=== PATIENT | female | born 1995 | race Caucasian/White ===

== ENCOUNTER 2018-11-22 18:52 | Emergency (ER) | payer MEDICAID ==
[2018-11-22 19:08] LABS: URINE APPEARANCE CLEAR; URINE BILIRUBIN SMALL (NEGATIVE); URINE BLOOD NEGATIVE (NEGATIVE); URINE COLOR YELLOW; URINE GLUCOSE (UA) NEGATIVE (NEGATIVE); URINE LEUKOCYTE ESTERASE TRACE (NEGATIVE); URINE NITRITE NEGATIVE (NEGATIVE)
[2018-11-22 19:10] LABS: URINE KETONE 80 mg/dL (NEGATIVE)
[2018-11-22 19:15] LABS: HCG,QUALITATIVE URINE NEGATIVE (NEGATIVE); URINE BACTERIA FEW; URINE EPITHELIAL CELLS TNTC (FEW); URINE RBC 0 - 2 (NONE SEEN); URINE WBC 0 - 2 (0-2/hpf)
[2018-11-22] MEDS ORDERED: KETOROLAC 30 MG/ML VIAL IVP ONE (19:35)
[2018-11-22] MEDS ORDERED: ONDANSETRON HCL IV 4 MG/2 ML VIAL IV ONE (19:35)
[2018-11-22] MEDS ORDERED: 0.9 % SODIUM CHLORIDE 1,000 ML BAG IV ONE (19:35)
[2018-11-22 19:59] LABS: ABSOLUTE NEUTROPHIL COUNT 8.89; BASO % 0.1 % (0-6); GRAN % 74.9 % (47-80); HEMATOCRIT 38.2 % (35.0-47.0); LYMPH % 14.6 % (16-45); MEAN CELL VOLUME 94.1 fl (81-97); MEAN PLATELET VOLUME 9.5 fl (7.4-10.4); MONO % 10.4 % (0-9); PLATELET COUNT 375 K/uL (130-400); RED BLOOD COUNT 4.06 M/uL (3.80-5.40); RED CELL DISTRIBUTION WIDTH 11.9 % (11.5-14.5); WHITE BLOOD COUNT W/O DIFF 11.9 K/uL (4.2-12.2)
--- NOTE | 2018-11-22 20:04 | Emergency Department Record ---
History of Present Illness - General Chief complaint: Flank Pain Stated complaint: LT FLANK PAIN Time Seen by Provider: 11/22/18 19:03 Source: Patient Mode of Arrival: Ambulatory Limitations: No limitations - History of Present Illness Initial comments: pt has been having vom, diarrhea, and ap since yesterday. she has vomited multiple times and had 3 bouts of diarrhea. she has llq pain and also has yellow vaginal discharge. she doesnt remember what she ate prior to getting sick MD Complaint: Vaginal discharge Onset/Timin -: Days(s) Radiation: LLQ Severity: Moderate Quality: Aching, Cramping Consistency: Constant, Intermittent LMP Date: 11/13/18 Gestational Age (wks) based on LMP: 1 Associated Symptoms: Abdominal pain, Nausea/vomiting - Related Data Previous Rx's Medication Instructions Recorded Metronidazole 500 mg PO BID #14 tablet 11/22/18 Allergies Allergy/AdvReac Type Severity Reaction Status Date / Time No Known Drug Allergies Allergy Verified 11/22/18 19:08 Travel Screening - Travel/Exposure Within Last 30 Days Have you traveled within the last 30 days?: No - Travel/Exposure Within Last Year Have you traveled outside the [place] in the last year?: No - Additonal Travel Details Have you been exposed to anyone with a communicable illness?: No - Travel Symptoms Symptom Screening: None Review of Systems Reviewed: No additional complaints except as noted below Constitutional: Reports: As per HPI. Denies: Chills, Fever, Malaise, Night sweats, Weakness, Weight change Eyes: Reports: As per HPI. Denies: Eye discharge, Eye pain, Photophobia, Vision change ENT: Reports: As per HPI. Denies: Congestion, Dental pain, Ear pain, Epistaxis, Hearing loss, Throat pain Respiratory: Reports: As per HPI. Denies: Cough, Dyspnea, Hemoptysis, Stridor, Wheezes Cardiovascular: Reports: As per HPI. Denies: Arrhythmia, Chest pain, Dyspnea on exertion, Edema, Murmurs, Orthopnea, Palpitations, Paroxysmal nocturnal dyspnea, Rheumatic Fever, Syncope Endocrine: Reports: As per HPI. Denies: Fatigue, Heat or cold intolerance, Jacob ydipsia, Polyuria Gastrointestinal: Reports: Abdominal pain, Diarrhea, Nausea, Vomiting. Denies: Constipation, Hematemesis, Hematochezia, Melena Genitourinary: Reports: As per HPI. Denies: Abnormal menses, Discharge, Dyspareunia, Dysuria, Frequency, Hematuria, Incontinence, Retention, Urgency Musculoskeletal: Reports: As per HPI. Denies: Arthralgia, Back pain, Gout, Joint swelling, Myalgia, Neck pain Skin: Reports: As per HPI. Denies: Bruising, Change in color, Change in hair/nails, Lesions, Pruritus, Rash Neurological: Reports: As per HPI. Denies: Abnormal gait, Confusion, Headache, Numbness, Paresthesias, Seizure, Tingling, Tremors, Vertigo, Weakness Psychiatric: Reports: As per HPI. Denies: Anxiety, Auditory hallucinations, Depression, Homicidal thoughts, Suicidal thoughts, Visual hallucinations Hematological/Lymphatic: Reports: As per HPI. Denies: Anemia, Blood Clots, Easy bleeding, Easy bruising, Swollen glands Past Medical History - SOCIAL HISTORY Smoking Status: Current every day smoker Alcohol Use: None Drug Use: Occasional, Heavy Drug Use Detail:: Marijuana - RESPIRATORY Hx Respiratory Disorders: Yes Hx Asthma: Yes (child) - CARDIOVASCULAR Hx Cardio Disorders: No - NEURO Hx Neuro Disorders: No - GI Hx GI Disorders: Yes Hx Abdominal Pain: Yes Hx Reflux: Yes Hx Nausea/Vomiting: Yes Comment:: diarrhea and constipation - Hx Genitourinary Disorders: No Hx Bladder Problem: No Hx UTI: No - ENDOCRINE Hx Endocrine Disorders: No - MUSCULOSKELETAL Hx Musculoskeletal Disorders: No - PSYCH Hx Psych Problems: Yes Hx Anxiety: Yes Hx Depression: Yes (not diagnosed) - HEMATOLOGY/ONCOLOGY Hx Hematology/Oncology Disorders: No Family Medical History Any Significant Family History?: Yes Family Hx Comment (NOT TO BE USED IN PLACE OF ITEMS BELOW): unknown (adopted) Physical Exam - General General Appearance: Alert, Oriented x3, Cooperative, No acute distress - Head Head exam: Normal inspection - Eye Eye exam: Normal appearance, PERRL, EOMI Pupils: Normal accommodation - ENT ENT exam: Normal exam, Mucous membranes moist, Normal external ear exam, Normal orophraynx, TM's normal bilaterally Ear exam: Normal external inspection. negative: External canal tenderness Nasal Exam: Normal inspection. negative: Discharge, Sinus tenderness Mouth exam: Normal external inspection, Tongue normal Teeth exam: Normal inspection. negative: Dental caries Throat exam: Normal inspection. negative: Tonsillar erythema, Tonsillar exudate - Neck Neck exam: Normal inspection, Full ROM. negative: Tenderness - Respiratory Respiratory exam: Normal lung sounds bilaterally. negative: Respiratory distress - Cardiovascular Cardiovascular Exam: Regular rate, Normal rhythm, Normal heart sounds - GI/Abdominal GI/Abdominal exam: Soft, Normal bowel sounds, Tenderness - Rectal Rectal exam: Deferred - exam: Cervical discharge, Normal bimanual exam, Normal external exam, Vaginal discharge - Extremities Extremities exam: Normal inspection, Full ROM, Normal capillary refill. negative: Tenderness - Back Back exam: Reports: Normal inspection, Full ROM. Denies: Muscle spasm, Rash noted, Tenderness - Neurological Neurological exam: Alert, Normal gait, Oriented X3, Reflexes normal - Psychiatric Psychiatric exam: Normal affect, Normal mood - Skin Skin exam: Dry, Intact, Normal color, Warm Course Vital Signs 11/22/18 18:55 Temperature 99.2 F Pulse Rate 92 H Respiratory 18 Rate Blood Pressure 110/73 Pulse Ox 97 - Reevaluation(s) Reevaluation #1: 11/22/18 20:25 pt feels better Medical Decision Making - Lab Data Result diagrams: 11/22/18 19:52 11/22/18 19:52 Lab Results 11/22/18 11/22/18 11/22/18 Range/Units 19:09 19:35 19:36 WBC (4.2-12.2) K/uL RBC (3.80-5.40) M/uL Hgb (11.6-16.0) gm/dl Hct (35.0-47.0) % MCV (81-97) fl MCH (27-33) pg MCHC (32-36) g/dl RDW (11.5-14.5) % Plt Count (130-400) K/uL MPV (7.4-10.4) fl Gran % (47-80) % Lymphocytes % (16-45) % Monocytes % (0-9) % Eosinophils % (0-6) % Basophils % (0-6) % Absolute Neutrophils Urine Color Yellow Cancelled Urine Appearance Clear Cancelled Urine pH 6.5 Cancelled (5.0-8.0) Ur Specific [place] 1.025 Cancelled (1.002-1.030) Urine Protein 30 mg/dl H Cancelled (NEGATIVE) Urine Glucose (UA) Negative Cancelled (NEGATIVE) Urine Clinitest Cancelled Urine Ketones 80 mg/dl H Cancelled (NEGATIVE) Urine Blood Negative Cancelled (NEGATIVE) Urine Nitrite Negative Cancelled (NEGATIVE) Urine Bilirubin Small H Cancelled (NEGATIVE) Urine Ictotest Cancelled Prot Sulfosalicylic Acd Cancelled Urine Urobilinogen 1.0 Cancelled (0.20 - 1.00) E.U./dL Ur Leukocyte Esterase Trace H Cancelled (NEGATIVE) Urine RBC 0 - 2 (NONE SEEN) Urine WBC 0 - 2 (0-2/hpf) Ur Epithelial Cells Tntc (FEW) Urine Bacteria Few Urine HCG, Qual Negative Cancelled (NEGATIVE) 11/22/18 Range/Units 19:52 WBC 11.9 (4.2-12.2) K/uL RBC 4.06 (3.80-5.40) M/uL Hgb 13.0 (11.6-16.0) gm/dl Hct 38.2 (35.0-47.0) % MCV 94.1 (81-97) fl MCH 32.0 (27-33) pg MCHC 34.0 (32-36) g/dl RDW 11.9 (11.5-14.5) % Plt Count 375 (130-400) K/uL MPV 9.5 (7.4-10.4) fl Gran % 74.9 (47-80) % Lymphocytes % 14.6 L (16-45) % Monocytes % 10.4 H (0-9) % Eosinophils % 0.0 (0-6) % Basophils % 0.1 (0-6) % Absolute Neutrophils 8.89 Urine Color Urine Appearance Urine pH (5.0-8.0) Ur Specific [place] (1.002-1.030) Urine Protein (NEGATIVE) Urine Glucose (UA) (NEGATIVE) Urine Clinitest Urine Ketones (NEGATIVE) Urine Blood (NEGATIVE) Urine Nitrite (NEGATIVE) Urine Bilirubin (NEGATIVE) Urine Ictotest Prot Sulfosalicylic Acd Urine Urobilinogen (0.20 - 1.00) E.U./dL Ur Leukocyte Esterase (NEGATIVE) Urine RBC (NONE SEEN) Urine WBC (0-2/hpf) Ur Epithelial Cells (FEW) Urine Bacteria Urine HCG, Qual (NEGATIVE) Disposition Disposition: Discharge Clinical Impression: Bacterial vaginosis, STD (female) Disposition: Home, Self-Care Condition: (1) Good Instructions: Bacterial Vaginosis (ED), Sexually Transmitted Diseases (ED), Condom Use (ED), Safe Sex (ED) Additional Instructions: follow up with family doctor. return sooner if worse. no sex for 2 wks. use condoms. have partner checked Prescriptions: Metronidazole 500 mg PO BID #14 tablet Forms: Patient Portal Access Quality - Quality Measures Quality Measures: N/A - Blood Pressure Screening Does Patient Have Any of the Following: No Blood Pressure Classification: Normal BP Reading Systolic Measurement: 110 Diastolic Measurement: 73 Screening for High Blood Pressure: < Normal BP, F/U Not Required > [G8783]
[2018-11-22 20:13] LABS: BLOOD UREA NITROGEN 12 mg/dL (6-20); CREATININE 0.7 mg/dL (0.5-0.9); EST GLOMERULAR FILTRATION RATE > 60 mL/min; LIPASE 11 U/L (13-60); TOTAL PROTEIN 7.6 g/dL (6.6-8.7)
[2018-11-22 20:15] LABS: GLUCOSE,RANDOM 94 mg/dL (74-109)
[2018-11-22 20:18] LABS: ALB/GLOB RATIO 1.5 (1.1-1.8); ALBUMIN 4.5 g/dL (4.0-5.0); ALKALINE PHOSPHATASE 138 U/L (35-104); ALT/SGPT 14 U/L (<33); AST/SGOT 22 U/L (10.0-35.0)
[2018-11-22] MEDS ORDERED: AZITHROMYCIN 500 MG TABLET PO ONE (20:24)
[2018-11-22] MEDS ORDERED: CEFTRIAXONE 250 MG VIAL IM ONE (20:24)
[2018-11-22] MEDS ORDERED: METRONIDAZOLE 250 MG TABLET PO ONE (20:45)
== END 2018-11-22 21:20 | disposition home or self-care (01) ==
LOC: ER 18:52
DX: N76.0 Acute vaginitis (principal); R19.7 Diarrhea, unspecified; R10.32 Left lower quadrant pain; F17.210 Nicotine dependence, cigarettes, uncomplicated; Z11.3 Encounter for screening for infections with a predominantly sexual mode of transmission
CPT/HCPCS: 80053; 81001; 81025; 83690; 85025; 87210; 96372; 96374; 96375; 99284; J1885; J2405; J7030

== ENCOUNTER 2018-11-23 10:34 | Emergency (ER) | payer MEDICAID ==
[2018-11-23] MEDS ORDERED: 0.9 % SODIUM CHLORIDE 1,000 ML BAG IV ONE (11:23)
[2018-11-23] MEDS ORDERED: ONDANSETRON HCL IV 4 MG/2 ML VIAL IV ONE (11:23)
[2018-11-23 11:33] LABS: ABSOLUTE NEUTROPHIL COUNT 11.71; HEMATOCRIT 37.8 % (35.0-47.0); HEMOGLOBIN 12.6 gm/dl (11.6-16.0); MEAN CELL VOLUME 93.6 fl (81-97); MEAN CORPUSCULAR HEMOGLOBIN 31.2 pg (27-33); MEAN CORPUSCULAR HGB CONC 33.3 g/dl (32-36); MEAN PLATELET VOLUME 9.5 fl (7.4-10.4); PLATELET COUNT 369 K/uL (130-400); RED BLOOD COUNT 4.04 M/uL (3.80-5.40); RED CELL DISTRIBUTION WIDTH 11.8 % (11.5-14.5); WHITE BLOOD COUNT W/O DIFF 14.1 K/uL (4.2-12.2)
[2018-11-23] MEDS ORDERED: LORAZEPAM 2 MG/ML VIAL IV ONE (11:39)
[2018-11-23 11:42] LABS: PLATELET ESTIMATE NORMAL (NORMAL)
[2018-11-23 11:43] LABS: BLOOD UREA NITROGEN 13 mg/dL (6-20)
[2018-11-23] MEDS ORDERED: SUCRALFATE 1 G/10 ML UD PO ONE (11:43)
[2018-11-23 11:44] LABS: CREATININE 0.8 mg/dL (0.5-0.9); EST GLOMERULAR FILTRATION RATE > 60 mL/min; LIPASE 12 U/L (13-60); TOTAL PROTEIN 7.5 g/dL (6.6-8.7)
[2018-11-23 11:46] LABS: GLUCOSE,RANDOM 85 mg/dL (74-109)
--- NOTE | 2018-11-23 11:46 | Emergency Department Record ---
History of Present Illness - General Chief complaint: Vomiting Stated complaint: VOMITING Time Seen by Provider: 11/23/18 11:01 Source: Patient Mode of Arrival: Ambulatory - History of Present Illness Initial comments: patient seen here last night and vomited times 4 since last night and passing wet farts and she claims epigastric abd pain. Evaluated by Dr Moreland and with labs and preg test negative. stop smoking marijuana 3 days ago. Onset/Timin -: Days(s) Description of Vomiting: Watery Associated Abdominal Pain: No (No longer has pain) Improves with: None Worsens with: Eating Associated Symptoms: Denies other symptoms - Related Data Previous Rx's Medication Instructions Recorded Metronidazole 500 mg PO BID #14 tablet 11/22/18 Omeprazole 20 mg PO DAILY #20 cap. 11/23/18 Allergies Allergy/AdvReac Type Severity Reaction Status Date / Time No Known Drug Allergies Allergy Verified 11/23/18 10:55 Travel Screening - Travel/Exposure Within Last 30 Days Have you traveled within the last 30 days?: No - Travel/Exposure Within Last Year Have you traveled outside the [place] in the last year?: No - Additonal Travel Details Have you been exposed to anyone with a communicable illness?: No - Travel Symptoms Symptom Screening: None Review of Systems Reviewed: No additional complaints except as noted below Constitutional: Reports: As per HPI. Denies: Chills, Fever, Malaise, Night sweats, Weakness, Weight change Eyes: Reports: As per HPI. Denies: Eye discharge, Eye pain, Photophobia, Vision change ENT: Reports: As per HPI. Denies: Congestion, Dental pain, Ear pain, Epistaxis, Hearing loss, Throat pain Respiratory: Reports: As per HPI. Denies: Cough, Dyspnea, Hemoptysis, Stridor, Wheezes Cardiovascular: Reports: As per HPI. Denies: Arrhythmia, Chest pain, Dyspnea on exertion, Edema, Murmurs, Orthopnea, Palpitations, Paroxysmal nocturnal dyspnea, Rheumatic Fever, Syncope Endocrine: Reports: As per HPI. Denies: Fatigue, Heat or cold intolerance, Polydipsia, Polyuria Gastrointestinal: Reports: As per HPI, Abdominal pain, Diarrhea, Vomiting. Denies: Constipation, Hematemesis, Hematochezia, Melena, Nausea Genitourinary: Reports: As per HPI. Denies: Abnormal menses, Discharge, Dyspareunia, Dysuria, Frequency, Hematuria, Incontinence, Retention, Urgency Musculoskeletal: Reports: As per HPI. Denies: Arthralgia, Back pain, Gout, Joint swelling, Myalgia, Neck pain Skin: Reports: As per HPI. Denies: Bruising, Change in color, Change in hair/nails, Lesions, Pruritus, Rash Neurological: Reports: As per HPI. Denies: Abnormal gait, Confusion, Headache, Numbness, Paresthesias, Seizure, Tingling, Tremors, Vertigo, Weakness Psychiatric: Reports: As per HPI. Denies: Anxiety, Auditory hallucinations, Depression, Homicidal thoughts, Suicidal thoughts, Visual hallucinations Hematological/Lymphatic: Reports: As per HPI. Denies: Anemia, Blood Clots, Easy bleeding, Easy bruising, Swollen glands Past Medical History - SOCIAL HISTORY Smoking Status: Former smoker Alcohol Use: None Drug Use Detail:: Marijuana - RESPIRATORY Hx Respiratory Disorders: Yes Hx Asthma: Yes (child) - CARDIOVASCULAR Hx Cardio Disorders: No - NEURO Hx Neuro Disorders: No - GI Hx GI Disorders: Yes Hx Abdominal Pain: Yes Hx Reflux: Yes Hx Nausea/Vomiting: Yes Comment:: diarrhea and constipation - Hx Genitourinary Disorders: No Hx Bladder Problem: No Hx UTI: No - ENDOCRINE Hx Endocrine Disorders: No - MUSCULOSKELETAL Hx Musculoskeletal Disorders: No - PSYCH Hx Psych Problems: Yes Hx Anxiety: Yes Hx Depression: Yes (not diagnosed) - HEMATOLOGY/ONCOLOGY Hx Hematology/Oncology Disorders: No Family Medical History Any Significant Family History?: No Family Hx Comment (NOT TO BE USED IN PLACE OF ITEMS BELOW): unknown (adopted) Physical Exam - General General Appearance: Alert, Oriented x3, Cooperative, No acute distress - Head Head exam: Normal inspection - Eye Eye exam: Normal appearance, PERRL Pupils: Normal accommodation - ENT ENT exam: Normal exam, Mucous membranes moist, Normal external ear exam, Normal orophraynx, TM's normal bilaterally Ear exam: Normal external inspection. negative: External canal tenderness Nasal Exam: Normal inspection. negative: Discharge, Sinus tenderness Mouth exam: Normal external inspection, Tongue normal Teeth exam: Normal inspection. negative: Dental caries Throat exam: Normal inspection. negative: Tonsillar erythema, Tonsillar exudate - Neck Neck exam: Normal inspection, Full ROM. negative: Tenderness - Respiratory Respiratory exam: Normal lung sounds bilaterally. negative: Respiratory distress - Cardiovascular Cardiovascular Exam: Regular rate, Normal rhythm, Normal heart sounds - GI/Abdominal GI/Abdominal exam: Soft, Normal bowel sounds. negative: Tenderness - Rectal Rectal exam: Deferred - exam: Deferred - Extremities Extremities exam: Normal inspection, Full ROM, Normal capillary refill. negative: Tenderness - Back Back exam: Reports: Normal inspection, Full ROM. Denies: Muscle spasm, Rash noted, Tenderness - Neurological Neurological exam: Alert, Normal gait, Oriented X3, Reflexes normal - Psychiatric Psychiatric exam: Normal affect, Normal mood - Skin Skin exam: Dry, Intact, Normal color, Warm Course Vital Signs 11/23/18 10:57 Temperature 98 F Pulse Rate 68 Respiratory 20 Rate Blood Pressure 100/63 Pulse Ox 99 - Reevaluation(s) Reevaluation #1: 11/23/18 12:47 patient is feeling better. Medical Decision Making - Data Complexity MDM Data: Labs Ordered and/or Reviewed - Lab Data Result diagrams: 11/23/18 11:10 11/23/18 11:10 Lab Results 11/23/18 Range/Units 11:10 WBC 14.1 H (4.2-12.2) K/uL RBC 4.04 (3.80-5.40) M/uL Hgb 12.6 (11.6-16.0) gm/dl Hct 37.8 (35.0-47.0) % MCV 93.6 (81-97) fl MCH 31.2 (27-33) pg MCHC 33.3 (32-36) g/dl RDW 11.8 (11.5-14.5) % Plt Count 369 (130-400) K/uL MPV 9.5 (7.4-10.4) fl Eosinophils % Not Reportable Basophils % Not Reportable Absolute Neutrophils 11.71 Disposition Clinical Impression: Hypokalemia, Gastroenteritis Vomiting Qualifiers: Vomiting type: unspecified Vomiting Intractability: non-intractable Nausea presence: with nausea Qualified Code(s): R11.2 - Nausea with vomiting, unspecified Disposition: Home, Self-Care Condition: (1) Good Instructions: Acute Nausea and Vomiting (ED) Additional Instructions: stay off marijuana clear liquids finish flagyl start omeprazole 20 mg once a day follow up with family DR in 2 days or return to the ED if worse Prescriptions: Omeprazole 20 mg PO DAILY #20 cap.dr Forms: Patient Portal Access Time of Disposition: 13:45 Quality - Quality Measures Quality Measures: N/A - Blood Pressure Screening Does Patient Have Any of the Following: No Blood Pressure Classification: Normal BP Reading Systolic Measurement: 100 Diastolic Measurement: 63 Screening for High Blood Pressure: < Normal BP, F/U Not Required > [G8783]
[2018-11-23 11:49] LABS: ALBUMIN 4.8 g/dL (4.0-5.0); ALKALINE PHOSPHATASE 136 U/L (35-104); ALT/SGPT 12 U/L (<33); AST/SGOT 16 U/L (10.0-35.0)
[2018-11-23 11:51] LABS: BILIRUBIN,DIRECT < 0.2 mg/dL (0-0.3)
[2018-11-23] MEDS ORDERED: POTASSIUM CHLORIDE 20 MEQ TABLET PO ONE (12:35)
[2018-11-23] MEDS ORDERED: 0.9 % SODIUM CHLORIDE 1000ML 1,000 ML IV SCH (13:00)
[2018-11-23 13:06] LABS: URINE APPEARANCE CLEAR; URINE BILIRUBIN SMALL (NEGATIVE); URINE BLOOD TRACE-I (NEGATIVE); URINE COLOR YELLOW; URINE GLUCOSE (UA) NEGATIVE (NEGATIVE); URINE NITRITE NEGATIVE (NEGATIVE); URINE PROTEIN NEGATIVE (NEGATIVE); URINE UROBILINOGEN 0.2 E.U./dL (0.20 - 1.00)
[2018-11-23 13:14] LABS: AMPHETAMINE SCREEN URINE NOT DETECTED; BARBITURATE SCREEN URINE NOT DETECTED; BENZODIAZEPINE SCREEN URINE NOT DETECTED; COCAINE SCREEN URINE NOT DETECTED; METHADONE SCREEN URINE NOT DETECTED; METHAMPHETAMINE SCREEN NOT DETECTED; OPIATE SCREEN URINE NOT DETECTED; OXYCODONE SCREEN URINE NOT DETECTED; PHENCYCLIDINE SCREEN URINE NOT DETECTED; PROPOXYPHENE SCREEN URINE NOT DETECTED; THC SCREEN URINE DETECTED; TRICYCLIC ANTIDEPRESSANT SCRN NOT DETECTED
[2018-11-23 13:21] LABS: URINE KETONE 80 mg/dL (NEGATIVE); URINE LEUKOCYTE ESTERASE TRACE (NEGATIVE)
[2018-11-23 13:22] LABS: URINE BACTERIA VERY FEW; URINE EPITHELIAL CELLS 36 - 50 (FEW); URINE RBC 0 - 2 (NONE SEEN); URINE WBC 0 - 2 (0-2/hpf)
== END 2018-11-23 14:00 | disposition home or self-care (01) ==
LOC: ER 10:34
DX: E87.6 Hypokalemia (principal); K52.9 Noninfective gastroenteritis and colitis, unspecified; R10.13 Epigastric pain; R11.2 Nausea with vomiting, unspecified
CPT/HCPCS: 99284 ×2; 96374; 96375; 83690; 80076; 80048; 81001; 80305; 85027; J2405; J2060; J7030